=== PATIENT | male | born 1990 | race African-American/Black ===

== ENCOUNTER 2024-12-14 16:16 | Emergency (ER) | payer OTHER, SELFPAY ==
--- NOTE | ~2024-12-14 | CT_ITS ---
CLINICAL HISTORY: head injury, headache CT head without contrast Comparison: None Findings: No intra-axial mass, midline shift, hydrocephalus, or acute hemorrhage. No significant atrophy-like change or white matter disease. The visualized paranasal sinuses and mastoid air cells are normal. The orbits are unremarkable. No skull fracture. IMPRESSION: 1. No acute intracranial findings. This document has been electronically signed by: Robbi Henderson MD on 12/14/2024 19:39:26
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
--- NOTE | 2024-12-14 16:38 | ECG_ITS ---
Test Reason : TASED Blood Pressure : */* mmHG Vent. Rate : 59 BPM Atrial Rate : 59 BPM P-R Int : 172 ms QRS Dur : 100 ms QT Int : 424 ms P-R-T Axes : 44 3 3 degrees QTcB Int : 419 ms Sinus bradycardia RSR' or QR pattern in V1 suggests right ventricular conduction delay Borderline ECG No previous ECGs available Referred By: Rishi Henderson Electronically Signed By: HOPE MAAT MD
[2024-12-14 16:43] VITALS: BP 129/66; PULSE 63; RESP 20; TEMP 36.1; O2SAT 100; BMI 45.6
[2024-12-14] MEDS: Acetaminophen 1,000 MG/100 ML PIGGYBACK 400 MG IV (17:38)
[2024-12-14] MEDS: 0.9 % Sodium Chloride 1,000 ML 999 ML IV (17:39)
[2024-12-14 17:47] LABS: Alanine Aminotransferase 10 U/L (0-40); Albumin Level 4.1 g/dL (3.5-5.0); Alkaline Phosphatase 87 U/L (39-117); Anion Gap 13 (12-20); Aspartate Amino Transferase 30 U/L (5-37); Bilirubin Direct 0.1 mg/dL (0.0-0.5); Bilirubin Total 0.5 mg/dL (0.0-1.0); Blood Urea Nitrogen 16 mg/dL (9-16); Calcium 8.9 mg/dL (8.4-10.2); Carbon Dioxide 20 mmol/L (22-29); Chloride 112 mmol/L (96-108); Creatinine Clr Calc Pharmacy 143.3; Estimated Glomerular Filt Rate > 60; Glucose Random 95 mg/dL (60-115); Lipase 23 U/L (8-78); Magnesium 1.8 mg/dL (1.6-2.6); Potassium 3.7 mmol/L (3.3-5.1); Sodium 141 mmol/L (135-145); Total Protein 7.6 g/dL (6.5-8.0)
[2024-12-14] MEDS: iohexoL 350 MG/ML 100 ML INFUS..BTL IV (18:08)
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
[2024-12-14 20:26] VITALS: BP 140/64; PULSE 54; RESP 16; TEMP 36.7; O2SAT 98
[2024-12-14] MEDS: Ketorolac Tromethamine 15 MG/ML VIAL IVPUSH (20:35)
[2024-12-14 20:38] VITALS: BP 140/64; PULSE 54; RESP 16; TEMP 36.7; O2SAT 98
== END 2024-12-14 20:39 ==
PROVIDERS: Emergency Provider Emergency Medicine
DX: S09.90XA Unspecified injury of head, initial encounter (principal); S00.01XA Abrasion of scalp, initial encounter; W18.30XA Fall on same level, unspecified, initial encounter; Y35.93XA Legal intervention, means unspecified, suspect injured, initial encounter; Y93.9 Activity, unspecified; Y92.9 Unspecified place or not applicable; Y99.9 Unspecified external cause status; R51.9 Headache, unspecified; M54.2 Cervicalgia; R10.12 Left upper quadrant pain; M25.561 Pain in right knee
CPT/HCPCS: 36415; 70450; 71250; 72125; 73564; 74177; 80048; 80076; 83690; 83735; 93005; 96365; 96366; 96375; 99285; J0131; J1885; Q9967

== ENCOUNTER → 2024-12-14 16:38 | Outpatient (BNV) | payer OTHER, SELFPAY | PROVIDERS: Emergency Provider Emergency Medicine; Visit Provider Student in an Organized Health Care Education/Training Program | DX: M25.561 Pain in right knee (principal); R51.9 Headache, unspecified; M54.2 Cervicalgia; R07.9 Chest pain, unspecified; R10.9 Unspecified abdominal pain | CPT/HCPCS: 70450; 71250; 72125; 73564; 74177 ==

== ENCOUNTER → 2024-12-14 16:38 | Outpatient (BNV) | payer OTHER, SELFPAY | PROVIDERS: Emergency Provider Emergency Medicine; Visit Provider Internal Medicine Cardiovascular Disease | DX: R00.1 Bradycardia, unspecified (principal) | CPT/HCPCS: 93010 ==